=== PATIENT | male | born 1995 | race Caucasian/White ===

== ENCOUNTER 2018-08-22 22:56 | Emergency (ER) | payer OTHER ==
--- NOTE | 2018-08-23 03:32 | ERPHSYRPT ---
- History of Present Illness Source: patient Exam Limitations: no limitations Patient Subjective Stated Complaint: pt states he tripped and fell backwards and sat on his ankle. states he has sharp pain when bearing weight and very small amt of pain while foot is elevated Triage Nursing Assessment: pt alert and oriented, asnwers questions approp. pt ambulate with crutches, nwb on lt leg. respirations nonlabored with lungs cta. swelling and tenderness noted to lt ankle. Physician History: Pt is a 22 y/o male that presented to the ED with L ankle pain. Pt states, on Sunday, he fell backwards, and his L LE was trapped behind him, and he fell on his L ankle. He felt some pain in the ankle on L, but was able to function and he took some Ibuprofen for pain. Now he can't put any pressure on the extremitiy, the kari is swollen, and the pain is worse. Method of Injury: fell Occurred: days ago Quality: constant, throbbing Lower Extremities Pain: ankle: left Modifying Factors: Improves With: immobilization, pain medication Associated Symptoms: none Allergies/Adverse Reactions: No Known Drug Allergies Allergy (Verified 08/23/18 00:32) Hx Tetanus, Diphtheria Vaccination/Date Given: Yes Hx Influenza Vaccination/Date Given: No Hx Pneumococcal Vaccination/Date Given: No Immunizations Up to Date: Yes - Review of Systems Constitutional: No Fever, No Chills Respiratory: No Cough, No Dyspnea Cardiac: No Chest Pain, No Edema, No Syncope Abdominal/Gastrointestinal: No Abdominal Pain, No Nausea, No Vomiting, No Diarrhea Musculoskeletal: Fall, Injury, Joint Pain, Joint Swelling (L ankle) - Past Medical History Pertinent Past Medical History: No Other Medical History: kidney stones - Social History Smoking Status: Current some day smoker How long have you smoked: 2 years Exposure to second hand smoke: No Drug Use: none Patient Lives Alone: No - Nursing Vital Signs Nursing Vital Signs: Initial Vital Signs Temperature 98.5 F 08/23/18 00:21 Pulse Rate 111 H 08/23/18 00:21 Respiratory Rate 18 08/23/18 00:21 Blood Pressure 144/89 08/23/18 00:21 O2 Sat by Pulse Oximetry 97 08/23/18 00:21 Pain Scale Pain Intensity 2 - Physical Exam General Appearance: alert Cardiovascular/Respiratory Exam: chest non-tender, normal breath sounds, regular rate/rhythm, no respiratory distress Gastrointestinal/Abdominal Exam: non-tender, guarding Back Exam: normal inspection, No vertebral tenderness Ankle Exam: right ankle: non-tender, normal inspection, normal range of motion, no evidence of injury, left ankle: bone tenderness, ecchymosis, joint effusion, limited range of motion, soft tissue tenderness (medial ankle on L), swelling ( medial ankle on L) Foot Exam: bilateral foot: non-tender, normal inspection, normal range of motion , no evidence of injury Neuro/Tendon Exam: normal sensation, normal motor functions Skin Exam: normal color, warm, dry SpO2: 97 - Course Nursing assessment & vital signs reviewed: Yes - Radiology Exams Left Ankle X-ray Interpretation: Teleradiologist Report (No fx of the L ankle) Ordered Tests: Active Orders 24 hr Category Date Time Status ANKLE (3 VIEWS) Stat Exams 08/23/18 00:54 Taken - Progress Progress: improved Progress Note: 08/23/18 03:32 Pt had XR of the Ankle and tele radiology read stated, no fracture of the ankle. I advised the pt to keep his leg elevated, iced, and use Ibuprofen for pain as anti inflammatory. Pt should f/u with PCP. Will see patient in: office Counseled pt/family regarding: need for follow-up - Departure Time of Disposition: 03:34 Departure Disposition: Home Clinical Impression: Left ankle sprain Condition: Stable Critical Care Time: No Referrals: DOCTOR,NO FAMILY [Primary Care Provider] - Instructions: Ankle Sprain (DC) Additional Instructions: Ice, elevate and take Ibuprofen for pain. F/U with PCP.
[2018-08-23 04:08] VITALS: BP 116/6; PULSE 98; O2SAT 98
--- NOTE | 2018-08-23 09:24 | XRAY ---
Indication: Pain following twisting injury. Comparison: None 3 views of the left ankle demonstrates anterolateral soft tissue swelling and small posterior heel spur. No other bony, articular, or soft tissue abnormalities. Comment: Preliminary interpretation was made by [facility]. No discrepancy.
== END 2018-08-23 04:08 | disposition home or self-care (01) ==
LOC: ED 22:56
DX: S93.402A Sprain of unspecified ligament of left ankle, initial encounter (principal); W01.198A Fall on same level from slipping, tripping and stumbling with subsequent striking against other object, initial encounter; M25.572 Pain in left ankle and joints of left foot
CPT/HCPCS: 73610; 99283